=== PATIENT | female | born 2000 | race Native Hawaiian/Other Pacific Islander ===

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

== ENCOUNTER 2022-03-06 18:06 | Emergency (ER) | payer MEDICAID ==
[2022-03-06 18:15] VITALS: BP 104/67
[2022-03-06 18:32] LABS: HCG UR QUAL POSITIVE
[2022-03-06] MEDS ORDERED: LIDOCAINE 1% 2 ML VIAL MC ONE (18:52)
[2022-03-06] MEDS ORDERED: cefTRIAXone 1 GM VIAL IM STA (18:52)
[2022-03-06] MEDS ORDERED: AZITHROMYCIN 250 MG TABLET PO STA (18:52)
--- NOTE | 2022-03-06 18:59 | ED Physician Documentation ---
History of Present Illness - Stated complaint Stated Complaint: FEMALE - Chief complaint Chief Complaint: Abd Pain - History obtained from History obtained from: Patient - History of Present Illness Timing: Today Pain level max: 0 Pain level now: 0 - Additonal information Additional information: 21-year-old female presents to the emergency department stating that she is taken 3 home test that have all been positive. She states she would like a confirmatory test. The patient is also concerned that she may have been exposed to chlamydia and is requesting testing/treatment. Patient is asymptomatic. No vaginal bleeding or discharge. No fevers. No abdominal pain. No back pain. No nausea or vomiting. No pelvic pain. 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 Psych: None Musculoskeletal: Other Derm: None - Past Surgical History Past Surgical History: No - Present Medications Home Medications: Ambulatory Orders Medication Instructions Recorded Confirmed No Known Home Medications 03/06/22 03/06/22 - Allergies Allergies/Adverse Reactions: Allergies Allergy/AdvReac Type Severity Reaction Status Date / Time No Known Drug Allergies Allergy Verified 03/06/22 18:12 - Social History Does the pt smoke?: No Smoking Status: Never smoker Does the pt drink ETOH?: Yes Does the pt have substance abuse?: No - Immunizations Immunizations are current?: No - POLST Patient has POLST: No PD ED PE NORMAL - Vitals Vital signs reviewed: Yes - General General: Alert and oriented X 3, No acute distress - HEENT HEENT: PERRL, Moist mucous membranes - Neck Neck: Supple, no meningeal sign - Cardiac Cardiac: RRR, Strong equal pulses - Respiratory Respiratory: No respiratory distress, Clear bilaterally - Abdomen Abdomen: Soft, Non tender, Non distended - Derm Derm: Warm and dry - Neuro Neuro: Alert and oriented X 3 - Psych Psych: Normal mood, Normal affect Results - Vitals Vitals: Vital Signs - 24 hr 03/06/22 18:07 Temperature 36.2 C L Heart Rate 63 Respiratory 14 Rate Blood Pressure 104/67 O2 Saturation 100 Oxygen O2 Source Room air - Labs Labs: Laboratory Tests 03/06/22 03/06/22 18:18 18:18 Urine HCG, Qual POSITIVE Chlam trachomat DNA PCR NEGATIVE N.gonorrhoeae DNA (PCR) NEGATIVE T. vaginalis (PCR) NEGATIVE PD MEDICAL DECISION MAKING - ED course Complexity details: reviewed results, re-evaluated patient, considered differential, d/w patient ED course: Patient with a positive test. Will refer her to [facility] for further care. No evidence of ectopic . Patient is asymptomatic. We will treat her for potential gonorrhea and chlamydia rather than waiting For the test results. Patient is comfortable with this plan. Patient counseled regarding signs and symptoms for which I believe and urgent re-evaluation would be necessary. Patient with good understanding of and agreement to plan and is comfortable going home at this time This document was made in part using voice recognition software. While efforts are made to proofread this document, sound alike and grammatical errors may occur. Departure - Departure Disposition: 01 Home, Self Care Clinical Impression: Positive test, Exposure to chlamydia Condition: Good Instructions: ED Care, ED Chlamydia GC Poss Culture Pend [facility] [[facility]] - Within 1 week Comments: Please follow-up with [facility] for further care. Please return if you worsen. I would recommend calling their office first thing in the morning. You were treated for both gonorrhea and chlamydia today, that these test should result within the next 24 hours. Discharge Date/Time: 03/06/22 19:09
[2022-03-06 21:22] LABS: CHLAMYDIA TRACHOMATIS DNA NEGATIVE (NEGATIVE); NEISSERIA GONORRHOEAE DNA NEGATIVE (NEGATIVE); TRICHOMONAS VAGINALIS DNA NEGATIVE (NEGATIVE)
== END 2022-03-06 19:09 | disposition home or self-care (01) ==
LOC: ED 18:06
DX: Z32.01 Encounter for pregnancy test, result positive (principal); Z20.2 Contact with and (suspected) exposure to infections with a predominantly sexual mode of transmission
CPT/HCPCS: 81025; 87491; 87591; 87661; 96372; 99281; 99283; A9270

== ENCOUNTER 2022-03-18 14:42 | Emergency (ER) | payer MEDICAID ==
[2022-03-18 15:51] LABS: BILIRUBIN,URINE NEGATIVE (NEGATIVE); GLUCOSE, URINE (UA) NEGATIVE (NEGATIVE); KETONES,URINE (UA) NEGATIVE (NEGATIVE); LEUKOCYTE ESTERASE, URINE NEGATIVE (NEGATIVE); NITRITE,URINE NEGATIVE (NEGATIVE); OCCULT BLOOD,URINE NEGATIVE (NEGATIVE); PH,URINE 7.5 PH (5.0-7.5); PROTEIN,URINE NEGATIVE (NEGATIVE); UROBILINOGEN,URINE 0.2 (NORMAL) E.U./dL (NORMAL)
[2022-03-18 15:53] LABS: CLARITY,URINE CLEAR (CLEAR); HCG UR QUAL POSITIVE
[2022-03-18 15:53] LABS: BASOPHILS % (AUTO) 0.3 %; EOSINOPHILS # (AUTO) 0.1 10^3/uL (0.0-0.7); EOSINOPHILS % (AUTO) 1.4 %; HCT - HEMATOCRIT 37.1 % (37.0-47.0); HGB - HEMOGLOBIN 12.6 g/dL (12.0-16.0); LYMPHOCYTES # (AUTO) 1.5 10^3/uL (1.5-3.5); LYMPHOCYTES % (AUTO) 19.1 %; MEAN CORPUSCULAR VOLUME 91.4 fL (81.0-99.0); MONOCYTES # (AUTO) 0.5 10^3/uL (0.0-1.0); MONOCYTES % (AUTO) 6.9 %; NEUTROPHILS # (AUTO) 5.6 10^3/uL (1.5-6.6); PLT - PLATELET COUNT 241 10^3/uL (130-450); RED BLOOD COUNT 4.06 10^6/uL (4.20-5.40); RED CELL DISTRIBUTION WIDTH 12.7 % (12.0-15.0); WHITE BLOOD COUNT 7.8 x10^3/uL (4.8-10.8)
[2022-03-18 16:06] LABS: ALBUMIN 3.7 g/dL (3.2-5.5); ALBUMIN/GLOBULIN RATIO 1.2 (1.0-2.2); BILIRUBIN,TOTAL 0.5 mg/dL (0.2-1.0); CALCIUM 8.7 mg/dL (8.5-10.3); CREATININE 0.5 mg/dL (0.4-1.0); POTASSIUM 3.5 mmol/L (3.5-5.0); TOTAL PROTEIN 6.7 g/dL (6.7-8.2)
--- NOTE | 2022-03-18 17:45 | Ultrasound Report ---
PROCEDURE: OB 14+ Weeks INDICATIONS: LLQ abd pain; newly OUTSIDE/PRIOR DATING DATA: Last menstrual period (LMP): 01/05/2022. LMP-based estimated date of delivery (DENIA): 10/12/2022. First dating scan (date and location): 03/18/2022. Estimated date of delivery (DENIA) from first dating scan: 09/01/2022. TECHNIQUE: Real-time scanning was performed of the fetus, with image documentation and biometric measurements. Endovaginal scanning: None COMPARISON: None. FINDINGS: General: A single living intrauterine gestation is present. Presentation: Variable Placenta: Placental position is anterior, without previa. Amniotic fluid index: Not obtained heart rate: 148 beats per minute. Maternal cervical canal: 3.5 cm long; normal length is 2.5 cm or more. biometrics: Biparietal diameter: 3.37 cm, 16 week 3 day Head circumference: 12.33 cm, 16 week 1 day Abdominal circumference: 10.08 cm, 16 week 1 day Femur length: 1.99 cm, 15 week 6 day Estimated gestational age from initial scan: 16 week 1 day Composite gestational age from present scan: 16 week 1 day Estimated weight and percentile: 144 g, greater than 99th percentile, given dates Measurement variability for biometric dating: +/- 10 days from 12-20 weeks gestation, +/- 2 weeks fro m 20-30 weeks gestation, +/- 3 weeks for 30 weeks gestation or later. Anatomic survey: Visualized anatomy is within normal limits IMPRESSION: Single live anterior consistent with a 16 week 1 day gestation Reviewed by: Cliff Becerra MD on 03/18/2022 4:44 PM ESHA Approved by: Cliff Becerra MD on 03/18/2022 4:44 PM [id number] Station ID: [id number]
--- NOTE | 2022-03-18 19:27 | ED Physician Documentation ---
History of Present Illness - Stated complaint Stated Complaint: SOA - Chief complaint Chief Complaint: Abd Pain - Additonal information Additional information: 21-year-old female presents emergency department for evaluation of left lower abdominal pain. She found out recently that she is about 16 weeks . She states that she has been intermittently having the pain. No vaginal bleeding or discharge. This is her first . She is uncertain of her last menstrual cycle. She is also feeling extremely anxious. She is preparing to move to [place] to be with her baby jorge l. She has not yet established with an OB provider. She states that sometimes she feels anxious. No chest pain or shortness of air Review of Systems Constitutional: reports: Reviewed and negative Eyes: reports: Reviewed and negative Nose: reports: Reviewed and negative Throat: reports: Reviewed and negative Cardiac: reports: Reviewed and negative Respiratory: reports: Reviewed and negative GI: reports: Abdominal Pain. 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 : None Psych: None Musculoskeletal: Other Derm: None - Past Surgical History Past Surgical History: No - Present Medications Home Medications: Ambulatory Orders Medication Instructions Recorded Confirmed No Known Home Medications 03/06/22 03/06/22 - Allergies Allergies/Adverse Reactions: Allergies Allergy/AdvReac Type Severity Reaction Status Date / Time No Known Drug Allergies Allergy Verified 03/18/22 15:26 - Social History Does the pt smoke?: No Smoking Status: Never smoker Does the pt drink ETOH?: Yes Does the pt have substance abuse?: No - Immunizations Immunizations are current?: No - POLST Patient has POLST: No PD ED PE NORMAL - General General: Alert and oriented X 3 - HEENT HEENT: PERRL - Neck Neck: Supple, no meningeal sign - Cardiac Cardiac: RRR, No murmur - Respiratory Respiratory: No respiratory distress - Abdomen Abdomen: Normal bowel sounds, Soft, Non tender - Back Back: No CVA TTP, No spinal TTP - Derm Derm: Normal color, Warm and dry - Extremities Extremities: No deformity, No tenderness to palpate, Normal ROM s pain - Neuro Neuro: Alert and oriented X 3 Eye Opening: Spontaneous Motor: Obeys Commands Verbal: Oriented GCS Score: 15 Results - Vitals Vitals: Vital Signs - 24 hr 03/18/22 03/18/22 15:21 18:38 Temperature 37.1 C Heart Rate 73 73 Respiratory 16 17 Rate Blood Pressure 99/65 103/53 L O2 Saturation 100 100 Oxygen O2 Source Room air - Labs Labs: Laboratory Tests 03/18/22 03/18/22 03/18/22 15:36 15:46 15:46 WBC 7.8 RBC 4.06 L Hgb 12.6 Hct 37.1 MCV 91.4 MCH 31.0 MCHC 34.0 RDW 12.7 Plt Count 241 MPV 9.0 Neut # (Auto) 5.6 Lymph # (Auto) 1.5 [place] # (Auto) 0.5 Eos # (Auto) 0.1 Baso # (Auto) 0.0 Absolute Nucleated RBC 0.00 Nucleated RBC % 0.0 Sodium 135 Potassium 3.5 Chloride 104 Carbon Dioxide 25 Anion Gap 6.0 BUN 6 Creatinine 0.5 Estimated GFR (MDRD) 159 Glucose 77 Calcium 8.7 Total Bilirubin 0.5 AST 15 ALT 11 Alkaline Phosphatase 48 Total Protein 6.7 Albumin 3.7 Globulin 3.0 Albumin/Globulin Ratio 1.2 Lipase 26 Urine Color YELLOW Urine Clarity CLEAR Urine pH 7.5 Ur Specific [place] 1.015 Urine Protein NEGATIVE Urine Glucose (UA) NEGATIVE Urine Ketones NEGATIVE Urine Occult Blood NEGATIVE Urine Nitrite NEGATIVE Urine Bilirubin NEGATIVE Urine Urobilinogen 0.2 (NORMAL) Ur Leukocyte Esterase NEGATIVE Ur Microscopic Review NOT INDICATED Urine Culture Comments NOT INDICATED Urine HCG, Qual POSITIVE Blood Type 03/18/22 15:46 WBC RBC Hgb Hct MCV MCH MCHC RDW Plt Count MPV Neut # (Auto) Lymph # (Auto) [place] # (Auto) Eos # (Auto) Baso # (Auto) Absolute Nucleated RBC Nucleated RBC % Sodium Potassium Chloride Carbon Dioxide Anion Gap BUN Creatinine Estimated GFR (MDRD) Glucose Calcium Total Bilirubin AST ALT Alkaline Phosphatase Total Protein Albumin Globulin Albumin/Globulin Ratio Lipase Urine Color Urine Clarity Urine pH Ur Specific [place] Urine Protein Urine Glucose (UA) Urine Ketones Urine Occult Blood Urine Nitrite Urine Bilirubin Urine Urobilinogen Ur Leukocyte Esterase Ur Microscopic Review Urine Culture Comments Urine HCG, Qual Blood Type O POSITIVE - Rads (name of study) ob US Radiology: Prelim report reviewed, Final report received PD MEDICAL DECISION MAKING - ED course Complexity details: reviewed results, re-evaluated patient, considered differential, d/w patient ED course: 21-year-old female G1, P0 presents the emergency department for evaluation of acute left lower quadrant abdominal pain that has been intermittent over the last few weeks. Recently found out that she was . She is uncertain of her last menstrual cycle. She is also anxious and upset. She is getting ready to move to [place] to be with the baby's daddy. CBC electrolytes and urine are all unremarkable with no findings of infection. A 14-week OB ultrasound was completed and found to have a live IUP with a estimated gestation of 16-week 1 day. Good heart rate and movement. Patient was reassured when we discussed the laboratory and imaging findings. This is a desired . She reports that she will begin taking a vitamin. We discussed the importance of healthy diet and avoidance of nicotine, alcohol or cannabis. She will work to establish with an OB once she moves. We also discussed emergent return OB precautions. Departure - Departure Disposition: 01 Home, Self Care Clinical Impression: Pelvic pain during Condition: Stable Record reviewed to determine appropriate education?: Yes Instructions: Preg Prepare Comments: You are today at 16 weeks 1 day. The baby has a good heart rate and movement was seen. Your CBC and electrolytes and urine were all essentially normal. You are O+ is your blood type. In general there is no specific treatment that is necessary today. I suspect your site slightly anxious given the new diagnosis of the as well as your anticipated move to [place]. Get plenty of sleep and get lots of rest. Eat a healthy diet and avoid stimulants, nicotine tobacco and alcohol. Reasons to return to the emergency department would be any development of sudden severe lower abdominal pain, vaginal bleeding or fevers. I encourage you to establish very quickly with an OB once you establish yourself in [place]
[2022-03-18 19:37] VITALS: BP 110/61
== END 2022-03-18 19:35 | disposition home or self-care (01) ==
LOC: ED 14:42
DX: O99.891 Other specified diseases and conditions complicating pregnancy (principal); R10.32 Left lower quadrant pain; Z3A.16 16 weeks gestation of pregnancy
CPT/HCPCS: 36415; 80053; 81001; 81003; 81025; 83690; 85025; 86900; 86901; 87086; 99282; 99284

== ENCOUNTER 2024-02-21 17:04 | Emergency (ER) | payer MEDICAID ==
[2024-02-21 17:37] VITALS: BP 114/69; O2SAT 98
[2024-02-21 17:56] LABS: BILIRUBIN,URINE NEGATIVE (NEGATIVE); GLUCOSE, URINE (UA) NEGATIVE (NEGATIVE); KETONES,URINE (UA) NEGATIVE (NEGATIVE); LEUKOCYTE ESTERASE, URINE SMALL (NEGATIVE); NITRITE,URINE NEGATIVE (NEGATIVE); OCCULT BLOOD,URINE TRACE-INTA (NEGATIVE); PROTEIN,URINE NEGATIVE (NEGATIVE); UROBILINOGEN,URINE 0.2 (NORMAL) E.U./dL (NORMAL)
[2024-02-21 18:00] LABS: CLARITY,URINE CLEAR (CLEAR); HCG UR QUAL NEGATIVE
[2024-02-21 18:11] LABS: BACTERIA,URINE Few /HPF (None Seen); RBC,URINE 0-5 /HPF (0-5); SQUAMOUS EPITHELIAL CELL,UR MOD Squamous (<= Few)
== END 2024-02-21 18:37 | disposition left against medical advice (07) ==
LOC: ED 17:04
DX: Z53.21 Procedure and treatment not carried out due to patient leaving prior to being seen by health care provider (principal)
CPT/HCPCS: 81001; 81003; 81025; 87086; 87491; 87591; 87661